=== PATIENT | male | born 1970 | race Caucasian/White ===

== ENCOUNTER 2020-11-16 18:51 | Emergency (ER) | payer OTHER, SELFPAY ==
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
[2020-11-16 19:04] VITALS: BP 125/100; PULSE 93; RESP 16; TEMP 37.3; O2SAT 98
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
[2020-11-16] MEDS: IBUPROFEN 600 MG TABLET PO (20:32)
== END 2020-11-16 21:14 | disposition home or self-care (01) ==
PROVIDERS: Emergency Provider Emergency Medicine
DX: S62.305A Unspecified fracture of fourth metacarpal bone, left hand, initial encounter for closed fracture (principal); S60.222A Contusion of left hand, initial encounter; S49.92XA Unspecified injury of left shoulder and upper arm, initial encounter; V49.40XA Driver injured in collision with unspecified motor vehicles in traffic accident, initial encounter; Y92.411 Interstate highway as the place of occurrence of the external cause
CPT/HCPCS: 29125; 73030; 73130; 99284; A9270